=== PATIENT | female | born 1940 | race Caucasian/White ===

== ENCOUNTER → 2016-07-14 | Outpatient (CLI) | payer OTHER ==
[~2016-07-14] MED LIST: ACTOS PO; ASPIRIN PO; ATENOLOL PO; CALCIUM 500 + D1 TAB PO; CENTRUM SILVER PO; CLARINEX-D1 TAB.SR . PO; DARVOCET-N 1001 TAB PO; FERROUS SULFATE PO; FISH OIL 1,0001 CAP PO; GLUCOTROL PO; MAVIK4 MG PO; MAXZIDE 75/50 T1 TAB PO; TRICOR PO; VIT E PO; VITAMIN C PO; WELCHOL625 MG PO
--- NOTE | ~2016-07-14 | MY11 ---
[facility] A Service of [facility] RADIOLOGY TEXT RESULTS PATIENT: LETI FLORENTINO LOCATION: [facility] : 40 UNIT #: [id number] AGE: [address]: Doni Parkinson MD SEX: F ORDER DR: [id number] [facility] [address] [place], [place] [address] [id number] O MR#: [id number] Acc #: [id number] NAME: LETI FLORENTINO : 1940 SEX: F STUDY DATE/TIME: 07/14/2016 11:33 UNIT: [facility] ROOM: STUDY DESCRIPTION: MY Mammogram Screening Dig Eulalio Attending Physician: Doni Parkinson M.D. Referring Physician: Katie Richey A.P.R.N. Ordering Physician: Doni Parkinson M.D. Primary Care Physician: Doni Parkinson M.D. MEDICAL IMAGING REPORT This report is preliminary unless electronic signature is present EXAM Digital screening mammogram 07/14/2016 [facility] HISTORY 75-year-old woman strong family history, mother age 43. Previous defibrillator implanted in the left breast removed 2013. No pressure allowed left breast. COMPARISON: Mammograms date to 05/13/2006 with most recent 07/11/2015. FINDINGS Digital imaging of each breast was completed utilizing screening protocol. Left breast images are compromised with no compression allowed. Entire breast structure is therefore not included. Residual parenchymal opacity in each breast is stable. Benign calcifications visualized bilaterally are stable. There is no identified breast mass. There are no suspicious microcalcifications and no architectural deformity. IMPRESSION Benign mammogram. Limited imaging posterior third left breast with no compression allowed. Annual screening recommended. Patients over the age of 40 are entered into a reminder system with target due date for the next mammogram. A result letter will also be sent to the patient. BIRADS: 2 - benign findings. Dictated by... Sean Ross M.D. [facility] A Service of [facility] RADIOLOGY TEXT RESULTS PATIENT: LETI FLORENTINO LOCATION: [facility] : 40 UNIT #: [id number] AGE: [address]: Doni Parkinson MD SEX: F ORDER DR: THIS IS AN ELECTRONICALLY VERIFIED REPORT Sean Ross M.D. at 07/16/2016 8:10 AM Lazaro TD: 07/14/2016 13:28 JOB #: [id number] MEDICAL IMAGING REPORT Page 1 of 1 COPY
== END | disposition home or self-care (01) ==
LOC: CWCC 10:51
DX: Z12.31 Encounter for screening mammogram for malignant neoplasm of breast (principal); Z80.3 Family history of malignant neoplasm of breast; Z98.890 Other specified postprocedural states
CPT/HCPCS: G0202